=== PATIENT | male | born 1970 | race Hispanic/Latino ===

== ENCOUNTER 2020-05-18 12:29 | Emergency (ER) | payer OTHER, SELFPAY ==
[2020-05-18 13:48] LABS: Absolute Lymphocytes (CBC) 0.7 K/uL (0.7-4.9); Basophils % 0.8 % (0-1.3); Hematocrit 40.7 % (39.6-49.0); Lymphocytes % 15.5 % (15.3-44.8); MPV 8.8 fL (7.6-11.3); RBC Red Blood Cell Count 4.52 M/uL (4.33-5.43)
[2020-05-18] MEDS ORDERED: NA CHLORIDE 0.9% 500 ML ONE (13:52)
[2020-05-18] MEDS ORDERED: AMLODIPINE 10 MG TAB ONE (13:52)
[2020-05-18] MEDS ORDERED: CEFTRIAXONE/SWI 1gm 1 GM/10 ML SYR ONE (13:52)
--- NOTE | 2020-05-18 14:05 | RAD REPORT ---
EXAM DESCRIPTION: Carolyn Single View05/18/2020 1:26 pm CLINICAL HISTORY: cough COMPARISON: none FINDINGS: Lungs are hyperaerated. The lungs appear clear of acute infiltrate. The heart is mildly enlarged IMPRESSION: No acute abnormalities displayed
[2020-05-18 14:09] LABS: ALT/SGPT 24 U/L (12-78); AST/SGOT 20 U/L (15-37); Albumin 4.1 g/dL (3.4-5.0); Alkaline Phosphatase 76 U/L (45-117); BUN Blood Urea Nitrogen 15 mg/dL (7-18); Bicarbonate 28 mmol/L (21-32); Bilirubin Direct 0.1 mg/dL (0-0.2); Bilirubin Total 0.4 mg/dL (0.2-1.0); Glucose Level 100 mg/dL (74-106); Magnesium 2.5 mg/dL (1.8-2.4); Potassium 3.2 mmol/L (3.5-5.1); Protein, Total 8.4 g/dL (6.4-8.2); Sodium Level 140 mmol/L (136-145); Troponin (Emerg Dept Use Only) < 0.02 ng/mL (0.0-0.045)
--- NOTE | 2020-05-18 14:40 | ER ---
Nurse's Notes [facility] Name: Gregg Rivas Age: 49 yrs Sex: Male : 1970 Arrival Date: 05/18/2020 Time: 12:32 Bed 6 Private MD: Diagnosis: Fever, unspecified;Acute upper respiratory infection, unspecified;Essential (primary) hypertension;Hypokalemia Presentation: 05/18 12:34 Chief complaint: Patient states: "I am having been having a small cough and and having jd3 fevers. I don't know if I have COVID.". Coronavirus screen: cough unrelated to allergies, fever, muscle pain, Client presents with at least one sign or symptom that may indicate coronavirus-19. Standard/surgical mask placed on the client. Provider contacted for isolation considerations. Ebola Screen: Patient negative for fever greater than or equal to 101.5 degrees Fahrenheit, and additional compatible Ebola Virus Disease symptoms. Initial Sepsis Screen: Does the patient meet any 2 criteria? No. Patient's initial sepsis screen is negative. Does the patient have a suspected source of infection? No. Patient's initial sepsis screen is negative. Risk Assessment: Do you want to hurt yourself or someone else? Patient reports no desire to harm self or others. Onset of symptoms was May 18, 2020. 12:34 Method Of Arrival: Ambulatory j 12:34 Acuity: NORMA 2 jd3 Triage Assessment: 13:00 General: Appears in no apparent distress. uncomfortable, ill, Behavior is cooperative, bp appropriate for age, anxious. Pain: Complains of pain in SORE THROAT. EENT: No deficits noted. Neuro: No deficits noted. Cardiovascular: No deficits noted. Respiratory: No deficits noted. GI: No signs and/or symptoms were reported involving the gastrointestinal system. : No signs and/or symptoms were reported regarding the genitourinary system. Derm: No deficits noted. Musculoskeletal: No deficits noted. Historical: - Allergies: 12:36 No Known Allergies; jd3 - Home Meds: 12:36 None [Active]; jd3 - PMHx: 12:36 None; jd3 - PSHx: 12:36 None; jd3 - Immunization history:: Adult Immunizations up to date. - Social history:: Smoking status: Patient denies any tobacco usage or history of. Screenin:19 Abuse screen: Denies threats or abuse. Denies injuries from another. Nutritional bp screening: No deficits noted. Tuberculosis screening: No symptoms or risk factors identified. Fall Risk None identified. Assessment: 13:19 General: SEE TRIAGE NOTE. bp 14:41 Reassessment: PT STATES NO S/S BUT REMAINS HYPERTENSIVE. D/C ON HOLD FOR FURTHER BP bp MANAGEMENT. 15:00 Reassessment: Patient is alert, oriented x 3, equal unlabored respirations, skin aa5 warm/dry/pink. Pt sitting up in bed, appears comfortable. Pt states no complaints at this time. . 16:32 Reassessment: PT D/C HOME AMBULATORY, DX WITH HTN AND URI. bp Vital Signs: 12:36 BP 204 / 129; Pulse 81; Resp 18 S; Temp 99.3(O); Pulse Ox 100% on R/A; Weight 86.18 kg jd3 (R); Height 5 ft. 6 in. (167.64 cm) (R); Pain 2/10; 13:30 BP 205 / 128; Pulse 86; Resp 17; Pulse Ox 98% ; bp 14:30 BP 233 / 138; Pulse 80; Resp 17; Pulse Ox 99% ; bp 15:00 BP 210 / 130 (man/); aa5 16:00 BP 182 / 118; Pulse 83; Resp 16; Pulse Ox 99% ; bp 12:36 Body Mass Index 30.67 (86.18 kg, 167.64 cm) jd3 15:00 Dr. Ellis notified. aa5 ED Course: 12:32 Patient arrived in ED. as 12:35 Triage completed. jd3 12:37 Arm band placed on. jd3 12:49 Melvin Marquez, ROCKY is Primary Nurse. bp 12:51 Sacha Ellis MD is Attending Physician. evelia 13:19 Patient has correct armband on for positive identification. Bed in low position. Call bp light in reach. Side rails up X2. 13:20 EKG done, by ED staff, reviewed by Sacha Ellis MD. jb1 13:27 XRAY Chest (1 view) In Process Unspecified. EDMS 13:30 Inserted saline lock: 20 gauge in right antecubital area, using aseptic technique. bp Blood collected. 14:38 Dwayne Nash MD is Referral Physician. evelia 16:32 No provider procedures requiring assistance completed. IV discontinued, intact, bp bleeding controlled, No redness/swelling at site. Pressure dressing applied. Administered Medications: 13:50 Drug: Rocephin 1 grams Route: IV; Rate: per protocol; Site: right antecubital; rb1 13:50 Drug: Norvasc 10 mg Route: PO; rb1 14:52 Follow up: Response: No adverse reaction bp 13:51 Drug: NS 0.9% 500 ml Route: IV; Rate: bolus; Site: right antecubital; rb1 14:51 Drug: Potassium Effervescent Tablet 50 mEq Route: PO; bp 14:52 Follow up: Response: No adverse reaction bp 14:51 Drug: Tylenol 650 mg Route: PO; bp 14:53 Follow up: Response: Pain is decreased bp 14:51 Drug: Lisinopril 10 mg Route: PO; bp 14:53 Follow up: Response: No adverse reaction bp 14:52 Drug: Aspirin 81 mg Route: PO; bp 14:52 Follow up: Response: No adverse reaction bp 14:52 Drug: cloNIDine 0.1 mg Route: PO; bp 14:52 Follow up: Response: No adverse reaction bp Outcome: 14:39 Discharge ordered by . [facility] 16:32 Discharged to home ambulatory. bp 16:32 Condition: stable 16:32 Discharge instructions given to patient, Instructed on discharge instructions, follow up and referral plans. medication usage, Demonstrated understanding of instructions, follow-up care, medications, Prescriptions given X 3. 16:33 Patient left the ED. bp Signatures: Dispatcher [employer] EDMS Jacob Birmingham jb1 Sacha Ellis MD MD cha Martinez, Amelia as Calderon, Audri, RN RN aa5 Fabiola Rangel, RN RN rb1 Nav Weinstein RN RN jd3 Melvin Marquez RN RN bp Corrections: (The following items were deleted from the chart) 12:37 12:34 Acuity: NORMA 3 jd3 jd3
--- NOTE | 2020-05-18 14:40 | EDPHYS ---
Physician Documentation [facility] Name: Gregg Rivas Age: 49 yrs Sex: Male : 1970 Arrival Date: 05/18/2020 Time: 12:32 Bed 6 Private MD: ED Physician Sacha Ellis HPI: 05/18 13:05 This 49 yrs old Male presents to ER via Ambulatory with complaints of Fever. evelia 13:05 The patient reports fever, that was measured at 101 degrees Fahrenheit. Onset: The evelia symptoms/episode began/occurred 1 day(s) ago. Modifying factors: there are no obvious modifying factors. Associated signs and symptoms: Pertinent positives: chills, cough. Severity of symptoms: At their worst the symptoms were mild in the emergency department the symptoms are unchanged. The patient has experienced similar episodes in the past, a few times. Historical: - Allergies: 12:36 No Known Allergies; jd3 - Home Meds: 12:36 None [Active]; jd3 - PMHx: 12:36 None; jd3 - PSHx: 12:36 None; jd3 - Immunization history:: Adult Immunizations up to date. - Social history:: Smoking status: Patient denies any tobacco usage or history of. ROS: 13:06 Constitutional: Negative for fever, chills, and weight loss, Eyes: Negative for injury, evelia pain, redness, and discharge, ENT: Negative for injury, pain, and discharge, Neck: Negative for injury, pain, and swelling, Cardiovascular: Negative for chest pain, palpitations, and edema, Abdomen/GI: Negative for abdominal pain, nausea, vomiting, diarrhea, and constipation, Back: Negative for injury and pain, : Negative for injury, bleeding, discharge, and swelling, MS/Extremity: Negative for injury and deformity, Skin: Negative for injury, rash, and discoloration, Neuro: Negative for headache, weakness, numbness, tingling, and seizure, Psych: Negative for depression, anxiety, suicide ideation, homicidal ideation, and hallucinations, Allergy/Immunology: Negative for hives, rash, and allergies, Endocrine: Negative for neck swelling, polydipsia, polyuria, polyphagia, and marked weight changes, Hematologic/Lymphatic: Negative for swollen nodes, abnormal bleeding, and unusual bruising. 13:06 Respiratory: Positive for cough. Exam: 13:06 Constitutional: This is a well developed, well nourished patient who is awake, alert, evelia and in no acute distress. Head/Face: Normocephalic, atraumatic. Eyes: Pupils equal round and reactive to light, extra-ocular motions intact. Lids and lashes normal. Conjunctiva and sclera are non-icteric and not injected. Cornea within normal limits. Periorbital areas with no swelling, redness, or edema. ENT: Nares patent. No nasal discharge, no septal abnormalities noted. Tympanic membranes are normal and external auditory canals are clear. Oropharynx with no redness, swelling, or masses, exudates, or evidence of obstruction, uvula midline. Mucous membranes moist. Neck: Trachea midline, no thyromegaly or masses palpated, and no cervical lymphadenopathy. Supple, full range of motion without nuchal rigidity, or vertebral point tenderness. No Meningismus. Chest/axilla: Normal chest wall appearance and motion. Nontender with no deformity. No lesions are appreciated. Cardiovascular: Regular rate and rhythm with a normal S1 and S2. No gallops, murmurs, or rubs. Normal PMI, no JVD. No pulse deficits. Respiratory: Lungs have equal breath sounds bilaterally, clear to auscultation and percussion. No rales, rhonchi or wheezes noted. No increased work of breathing, no retractions or nasal flaring. Abdomen/GI: Soft, non-tender, with normal bowel sounds. No distension or tympany. No guarding or rebound. No evidence of tenderness throughout. Back: No spinal tenderness. No costovertebral tenderness. Full range of motion. Skin: Warm, dry with normal turgor. Normal color with no rashes, no lesions, and no evidence of cellulitis. MS/ Extremity: Pulses equal, no cyanosis. Neurovascular intact. Full, normal range of motion. Neuro: Awake and alert, GCS 15, oriented to person, place, time, and situation. Cranial nerves II-XII grossly intact. Motor strength 5/5 in all extremities. Sensory grossly intact. Cerebellar exam normal. Normal gait. Psych: Awake, alert, with orientation to person, place and time. Behavior, mood, and affect are within normal limits. 13:06 Musculoskeletal/extremity: Extremities: all appear grossly normal, with no appreciated pain with palpation, ROM: full active range of motion, full passive range of motion, Pulses: noted to be 4+ in the bilateral radial, brachial, femoral, popliteal, posterior tibial and and dorsalis pedis arteries., Sensation intact. Compartment Syndrome exam of affected extremity: is normal. DVT Exam: No signs of deep vein thrombosis. no pain, no swelling, no tenderness, negative Homans' sign noted on exam, no appreciated bluish discoloration, no erythema, no increased warmth. 13:22 ECG was reviewed by the Attending Physician. [facility] Vital Signs: 12:36 BP 204 / 129; Pulse 81; Resp 18 S; Temp 99.3(O); Pulse Ox 100% on R/A; Weight 86.18 kg jd3 (R); Height 5 ft. 6 in. (167.64 cm) (R); Pain 2/10; 13:30 BP 205 / 128; Pulse 86; Resp 17; Pulse Ox 98% ; bp 14:30 BP 233 / 138; Pulse 80; Resp 17; Pulse Ox 99% ; bp 15:00 BP 210 / 130 (man/); aa5 16:00 BP 182 / 118; Pulse 83; Resp 16; Pulse Ox 99% ; bp 12:36 Body Mass Index 30.67 (86.18 kg, 167.64 cm) jd3 15:00 Dr. Ellis notified. [facility] MDM: 12:[address] [facility] 13:07 Data reviewed: vital signs, nurses notes, lab test result(s), EKG, radiologic studies, [facility] plain films. 13:08 Differential diagnosis: viral Infection, bacterial infection, URI, bronchitis, evelia pneumonia UTI. Differential Diagnosis: Bronchitis Influenza Upper Respiratory Infection Pneumonia. Data interpreted: professor of literature: rate is 81 beats/min, rhythm is regular, Pulse oximetry: on room air is 100 %. Test interpretation: by ED physician or midlevel provider: ECG, plain radiologic studies. Counseling: I had a detailed discussion with the patient and/or guardian regarding: the historical points, exam findings, and any diagnostic results supporting the discharge/admit diagnosis, the presence of at least one elevated blood pressure reading (>120/80) during this emergency department visit, lab results, radiology results, the need for outpatient follow up, for definitive care, a family practitioner. 14:36 ED course: fever , pt is non toxic, will cove with Norvasc and z pack, pt will follow evelia up and return to [facility] er if symptoms. 05/18 13:04 Order name: Basic Metabolic Panel; Complete Time: 14:33 [facility] 05/18 13:04 Order name: CBC with Diff; Complete Time: 14:33 [facility] 05/18 13:04 Order name: LFT's; Complete Time: 14:33 [facility] 05/18 13:04 Order name: Magnesium; Complete Time: 14:33 [facility] 05/18 13:04 Order name: Troponin (emerg Dept Use Only); Complete Time: 14:33 [facility] 05/18 13:04 Order name: Blood Culture Adult (2) [facility] 05/18 13:04 Order name: XRAY Chest (1 view); Complete Time: 14:33 [facility] 05/18 14:15 Order name: COVID-19 bp 05/18 13:04 Order name: EKG; Complete Time: 13:04 [facility] 05/18 13:04 Order name: Cardiac monitoring; Complete Time: 13:20 [facility] 05/18 13:04 Order name: EKG - Nurse/Tech; Complete Time: 13:20 [facility] 05/18 13:04 Order name: IV Saline Lock; Complete Time: 13:34 [facility] 05/18 13:04 Order name: Labs collected and sent; Complete Time: 13:34 [facility] 05/18 13:04 Order name: O2 Per Protocol; Complete Time: 13:20 [facility] 05/18 13:04 Order name: O2 Sat Monitoring; Complete Time: 13:20 [facility] 05/18 14:36 Order name: Vital Signs; Complete Time: 14:42 evelia EC: Rate is 76 beats/min. Rhythm is regular. QRS [place] is Normal. TN interval is normal. QRS evelia interval is normal. QT interval is normal. No Q waves. T waves are Normal. No ST changes noted. Clinical impression: Normal ECG and NSR w/ Non-specific ST/T Changes. Interpreted by me. Reviewed by me. Administered Medications: 13:50 Drug: Rocephin 1 grams Route: IV; Rate: per protocol; Site: right antecubital; rb1 13:50 Drug: Norvasc 10 mg Route: PO; rb1 14:52 Follow up: Response: No adverse reaction bp 13:51 Drug: NS 0.9% 500 ml Route: IV; Rate: bolus; Site: right antecubital; rb1 14:51 Drug: Potassium Effervescent Tablet 50 mEq Route: PO; bp 14:52 Follow up: Response: No adverse reaction bp 14:51 Drug: Tylenol 650 mg Route: PO; bp 14:53 Follow up: Response: Pain is decreased bp 14:51 Drug: Lisinopril 10 mg Route: PO; bp 14:53 Follow up: Response: No adverse reaction bp 14:52 Drug: Aspirin 81 mg Route: PO; bp 14:52 Follow up: Response: No adverse reaction bp 14:52 Drug: cloNIDine 0.1 mg Route: PO; bp 14:52 Follow up: Response: No adverse reaction bp Disposition: 05/18/20 14:39 Discharged to Home. Impression: Fever, unspecified, Acute upper respiratory infection, unspecified, Essential (primary) hypertension, Hypokalemia. - Condition is Stable. - Discharge Instructions: Potassium Content of Foods, Hypertension, Upper Respiratory Infection, Adult, Hypertension, [id number], How to Take Your Blood Pressure, Sqbh-[id number]-Juab, Aspirin and Your Heart, Cough, Adult, Hypokalemia, Managing Your Hypertension. - Prescriptions for Norvasc 10 mg Oral Tablet - take 1 tablet by ORAL route once daily; 30 tablet. Zithromax Z- Earl 250 mg Oral Tablet - take 1 tablet by ORAL route as directed for 5 days Day 1 - take two (2) tablets one time. Day 2, 3, 4 , 5 take one (1) tablet once daily.; 6 tablet. Lisinopril 10 mg Oral Tablet - take 1 tablet by ORAL route once daily; 20 tablet. - Medication Reconciliation Form, Thank You Letter, Antibiotic Education, Prescription Opioid Use form. - Follow up: Private Physician; When: 2 - 3 days; Reason: Recheck today's complaints, Continuance of care, Re-evaluation by your physician. Follow up: Dwayne Nash MD; When: 2 - 3 days; Reason: Recheck today's complaints, Re-evaluation by your physician. - Problem is new. - Symptoms have improved. Addendum: 05/22/2020 11:34 Addendum: Notified of positive COVID-19 test results, feels better, requests proof for r n work. . Signatures: Dispatcher [employer] Sacha Pacheco MD MD cha Nieto, Roman, MD MD rn Barber, Fabiola, RN RN rb1 Nav Weinstein RN RN jd3 Melvin Marquez RN RN bp Corrections: (The following items were deleted from the chart) 05/18 14:56 14:39 05/18/2020 14:39 Discharged to Home. Impression: Fever, unspecified; Acute upper evelia respiratory infection, unspecified; Essential (primary) hypertension. Condition is Stable. Forms are Medication Reconciliation Form, Thank You Letter, Antibiotic Education, Prescription Opioid Use. Follow up: Private Physician; When: 2 - 3 days; Reason: Recheck today's complaints, Continuance of care, Re-evaluation by your physician. Follow up: Dwayne Nash; When: 2 - 3 days; Reason: Recheck today's complaints, Re-evaluation by your physician. Problem is new. Symptoms have improved. evelia 16:33 14:56 05/18/2020 14:39 Discharged to Home. Impression: Fever, unspecified; Acute upper bp respiratory infection, unspecified; Essential (primary) hypertension; Hypokalemia. Condition is Stable. Discharge Instructions: Hypertension, Upper Respiratory Infection, Adult, Hypertension, [id number]-[id number]-[id number], How to Take Your Blood Pressure, [id number]-[id number], Aspirin and Your Heart, Cough, Adult, Managing Your Hypertension. Prescriptions for Norvasc 10 mg Oral Tablet - take 1 tablet by ORAL route once daily; 30 tablet, Zithromax Z-Earl 250 mg Oral Tablet - take 1 tablet by ORAL route as directed for 5 days Day 1 - take two (2) tablets one time. Day 2, 3, 4 , 5 take one (1) tablet once daily.; 6 tablet, Lisinopril 10 mg Oral Tablet - take 1 tablet by ORAL route once daily; 20 tablet. and Forms are Medication Reconciliation Form, Thank You Letter, Antibiotic Education, Prescription Opioid Use. Follow up: Private Physician; When: 2 - 3 days; Reason: Recheck today's complaints, Continuance of care, Re-evaluation by your physician. Follow up: Dwayne Nash; When: 2 - 3 days; Reason: Recheck today's complaints, Re-evaluation by your physician. Problem is new. Symptoms have improved. evelia
[2020-05-18] MEDS ORDERED: cloNIDine HCL 0.1 MG TAB ONE (14:55)
[2020-05-18] MEDS ORDERED: ACETAMINOPHEN 325 MG TABLET ONE (14:56)
[2020-05-18] MEDS ORDERED: lisinopriL 10 MG TAB ONE (14:56)
[2020-05-18] MEDS ORDERED: ASPIRIN EC 81 MG TAB PO ONE (14:56)
[2020-05-18] MEDS ORDERED: POTASSIUM 25 MEQ EFFERV TAB ONE (14:56)
== END 2020-05-18 16:33 | disposition home or self-care (01) ==
LOC: ER 12:29
DX: U07.1 COVID-19 (principal); J98.8 Other specified respiratory disorders; I10 Essential (primary) hypertension; E87.6 Hypokalemia
CPT/HCPCS: 36415; 71045; 80048; 80076; 83735; 84484; 85025; 87040; 93005; 96374; 99284; J0696; J7040; U0002

== ENCOUNTER 2023-07-17 08:42 | Emergency (ER) | payer SELFPAY ==
--- OUTSIDE RECORDS SUMMARY | 2023-07-17 08:45 | XMS REPORT | Continuity of Care Document ---
:1970 Author Organization [facility] t Address [address] [place] [id number] Care Team Providers Name Role Phone Unavailable Unavailable Unavailable Problems This patient has no known problems. Allergies, Adverse Reactions, Alerts This patient has no known allergies or adverse reactions. Medications This patient has no known medications. Procedures This patient has no known procedures. Encounters Start End Encounter Admission Attending Care Care Encounter Source Date/Time Date/Time Type Type Clinicians Facility Department ID 2023-07-16 2023-07-[address] [facility] SFA [id number] Liam 08:51:39 08:51:39 [address] [facility] Results This patient has no known results.
[2023-07-17 09:03] LABS: Absolute Lymphocytes (CBC) 1.7 K/uL (0.7-4.9); Hematocrit 40.3 % (39.6-49.0); Lymphocytes % 17.8 % (15.3-44.8); MCV 89.8 fL (80-100); Platelets 224 thou/uL (152-406); RBC Red Blood Cell Count 4.48 M/uL (4.33-5.43)
[2023-07-17] MEDS ORDERED: ONDANSETRON 4 MG/2 ML VIAL ONE ×2 (09:04→10:44)
[2023-07-17] MEDS ORDERED: MORPHINE 4 MG/ML SYR ONE (09:04)
[2023-07-17 09:24] LABS: Albumin 3.6 g/dL (3.4-5.0); Bilirubin Direct 0.2 mg/dL (0-0.2); Bilirubin Indirect, Calculated 0.7 mg/dL (0.2-0.8); Bilirubin Total 0.9 mg/dL (0.2-1.0); Magnesium 2.3 mg/dL (1.6-2.4); Potassium 2.9 mEq/L (3.5-5.1); Protein, Total 7.4 g/dL (6.4-8.2); Troponin High Sensitivity 10.8 pg/mL (<58.9)
--- NOTE | 2023-07-17 09:52 | RAD REPORT ---
[facility] CLINICAL HISTORY: CHEST PAIN COMPARISON: Chest Single View dated 05/18/2020; ABDOMEN ACUTE SERIES dated 11/20/2015; CHEST PA AND LA T 2 VIEW dated 11/05/2011 TECHNIQUE: Portable AP view of the chest. FINDINGS: The lungs are clear. No pneumothorax or effusion. Heart is mildly enlarged. Mediastinal c ontours are unremarkable. IMPRESSION: No acute cardiopulmonary process. Stable mild cardiomegaly.
[2023-07-17] MEDS ORDERED: HYDROMORPHONE HCL 1 MG/ML INJ ONE (10:05)
[2023-07-17] MEDS ORDERED: DIPHENHYDRAMINE 50 MG/ML VIAL ONE (10:38)
[2023-07-17] MEDS ORDERED: FAMOTIDINE 20 MG/2 ML VIAL IV ONE (10:38)
[2023-07-17] MEDS ORDERED: METHYLPREDNISOLONE 125 MG INJ ONE (10:38)
--- NOTE | 2023-07-17 10:39 | ER ---
Nurse's Notes [facility] Name: Gregg Rivas Age: 53 yrs Sex: Male : 1970 Arrival Date: 07/17/2023 Time: 08:42 Bed 8 Private MD: Diagnosis: Thoracic aortic aneurysm, without rupture Presentation: 07/17 08:45 Chief complaint: EMS states: toned out to patient home for CP radiating to back. ld1 Coronavirus screen: At this time, the client does not indicate any symptoms associated with coronavirus-19. Ebola Screen: No symptoms or risks identified at this time. Initial Sepsis Screen: Does the patient meet any 2 criteria? No. Patient's initial sepsis screen is negative. Does the patient have a suspected source of infection? No. Patient's initial sepsis screen is negative. Risk Assessment: Do you want to hurt yourself or someone else? Patient reports no desire to harm self or others. Onset of symptoms was July 17, 2023. 08:45 Method Of Arrival: EMS: [facility] ld1 08:45 Acuity: NORMA 3 ld1 10:25 Acuity: NORMA 2 hb Triage Assessment: 08:46 General: Appears in no apparent distress. uncomfortable, Behavior is calm, cooperative. ld1 Pain: Complains of pain in chest Pain radiates to back Pain currently is 9 out of 10 on a pain scale. Quality of pain is described as pressure, throbbing. EENT: No signs and/or symptoms were reported regarding the EENT system. Neuro: Level of Consciousness is awake, alert, obeys commands, Oriented to person, place, time, situation. Cardiovascular: Capillary refill < 3 seconds Patient's skin is warm and dry. Rhythm is sinus bradycardia. Respiratory: Airway is patent Respiratory effort is even, unlabored. GI: Abdomen is round non-distended. : No signs and/or symptoms were reported regarding the genitourinary system. Derm: Skin temperature is cool. Musculoskeletal: No signs and/or symptoms reported regarding the musculoskeletal system. Historical: - Allergies: 08:46 No Known Allergies; ld1 - PMHx: 08:46 BPH; Hypertensive disorder; ld1 - PSHx: 08:46 None; ld1 - Immunization history:: Adult Immunizations up to date. - Social history:: Smoking status: Patient denies any tobacco usage or history of. Patient/guardian denies using alcohol. Screenin:48 [facility] ED Fall Risk Assessment (Adult) History of falling in the last 3 months, ld1 including since admission No falls in past 3 months (0 pts). Abuse screen: Denies threats or abuse. Denies injuries from another. Nutritional screening: No deficits noted. Tuberculosis screening: No symptoms or risk factors identified. Assessment: 08:48 Reassessment: See triage assessment. ld1 09:15 Reassessment: Patient appears in no apparent distress at this time. Patient states ld1 symptoms have not improved. 10:32 Reassessment: No changes from previously documented assessment. Patient and/or family ld1 updated on plan of care and expected duration. Pain level reassessed. Pt back from CT - reports Nausea, actively vomiting. ERP at bedside. Medications administered, see [facility] for orders. Pt still c/o chest pain. 11:10 Reassessment: Pt back from CT. ERP at bedside. ld1 11:40 Reassessment: Pt BP not lowering to goal <120 despite several doses of metoprolol and hb Jez, aware, Cardene drip started to 20g RAC. Transfer to higher level of care pending. 11:56 Reassessment: Report called to Bassam HIDALGO at [facility]. hb 12:05 Reassessment: [facility] at bedside. hb Vital Signs: 08:45 BP 180 / 119; Pulse 59; Resp 18; Pulse Ox 100% on R/A; Pain 9/10; ld1 08:48 Weight 81.65 kg; Height 5 ft. 8 in. ; ld1 08:56 BP 169 / 110; ld1 09:16 BP 182 / 93; Pulse 49; Resp 15; Temp 97.9; Pulse Ox 99% on R/A; hb 10:23 BP 188 / 94; Pulse 71; Resp 18; Pulse Ox 99% on R/A; Pain 8/10; ld1 10:37 BP 201 / 103; ld1 10:48 BP 183 / 99; Pulse 82; ld1 10:56 BP 172 / 99; Pulse 84; ld1 11:00 BP 157 / 81; Pulse 91; ld1 11:06 BP 169 / 77; ld1 11:19 BP 177 / 88; Pulse 77; Resp 15; Pulse Ox 99% ; hb 11:26 BP 162 / 81; Pulse 72; hb 11:30 BP 165 / 87; Pulse 74; Resp 18; Pulse Ox 99% on R/A; ld1 11:35 BP 155 / 93; Pulse 69; Resp 30; Pulse Ox 99% on R/A; ld1 11:47 BP 144 / 79; Pulse 75; Resp 18; Pulse Ox 98% on R/A; ld1 11:55 BP 135 / 72; Pulse 74; Resp 21; Pulse Ox 99% on R/A; hb 11:57 BP 135 / 72; Pulse 74; Resp 18; Pulse Ox 97% on R/A; ld1 12:08 BP 127 / 74; Pulse 72; Resp 19; Pulse Ox 96% ; hb 08:48 Body Mass Index 27.37 (81.65 kg, 172.72 cm) ld1 08:45 Pain Scale: Adult ld1 10:23 Pain Scale: Adult ld1 ED Course: 08:44 Patient arrived in ED. ll1 08:45 Yari Spencer RN is Primary Nurse. ld1 08:46 Juan Amato MD is Attending Physician. kdr 08:46 Triage completed. ld1 08:46 Arm band placed on right wrist. ld1 08:48 Patient has correct armband on for positive identification. Placed in gown. Bed in low ld1 position. Call light in reach. Side rails up X2. electrician's helper on. Pulse ox on. NIBP on. Door closed. Noise minimized. Warm blanket given. 08:48 No provider procedures requiring assistance completed. Inserted saline lock: 20 gauge ld1 in right antecubital area, using aseptic technique. Blood collected. Patient maintains SpO2 saturation greater than 95% on room air. 09:01 XRAY Chest (1 view) In Process Unspecified. EDMS 10:29 Thorax Wo Con In Process Unspecified. EDMS 10:32 contacted [facility] for transfer. ll1 10:34 Inserted saline lock: 20 gauge in left antecubital area, using aseptic technique. ld1 11:05 Angio Aorta For Dissection In Process Unspecified. EDMS 11:10 contacted [facility] for transfer. ll1 11:48 Approval for [facility] Dr. Erick Sawant, accepted by Josefa Mcintyre, transfer ll1 coordinator. Going to room 7A, bed 6, Rodas A. 11:49 Jayla Aggarwal notified no longer need bed. ll1 11:50 [facility] contacted. ETA 26 min. ll1 12:17 Patient transferred, IV remains in place. hb Administered Medications: 08:54 Drug: morphine IVP or IV 4 mg IVP once over 4 mins Route: IVP; Infused Over: 4 mins; ld1 Site: right antecubital; 08:55 Drug: Ondansetron IVP 4 mg IVP once; over 2 minutes Route: IVP; Site: right antecubital;ld1 09:54 Drug: HYDROmorphone IVP 0.5 mg IVP once; Verbal order per Dr. Amato Route: IVP; Site: ld1 right antecubital; 10:28 Drug: diphenhydrAMINE IVP 50 mg IVP once Route: IVP; Site: right antecubital; hb 10:28 Drug: Famotidine IVP 20 mg IVP once; dilute with 10 mL 0.9% NaCl; give over 2 minutes hb Route: IVP; Site: right antecubital; 10:29 Drug: MethylPrednisoLONE IVP 125 mg IVP once Route: IVP; Site: right antecubital; hb 10:33 Drug: hydrALAZINE IVP 5 mg IVP once Route: IVP; Site: right antecubital; hb 10:34 Drug: HYDROmorphone IVP 0.5 mg IVP once; Verbal order per Dr. Amato Route: IVP; Site: ld1 left antecubital; 10:36 Drug: hydrALAZINE IVP 5 mg IVP once Route: IVP; Site: right antecubital; ld1 10:49 Drug: hydrALAZINE IVP 5 mg IVP once Route: IVP; Site: left antecubital; hb 10:56 Drug: hydrALAZINE IVP 10 mg IVP once Route: IVP; Site: left antecubital; hb 11:06 Drug: hydrALAZINE IVP 10 mg IVP once Route: IVP; Site: left antecubital; hb 11:12 Drug: Metoprolol IVP 5 mg IVP once; Hold for SBP <100 or HR <60. Route: IVP; Site: hb right antecubital; 11:18 Drug: Metoprolol IVP 5 mg IVP once; Hold for SBP <100 or HR <60. Route: IVP; Site: left hb antecubital; 11:24 Drug: Labetalol IV 10 mg IV at calculated rate once Route: IV; Rate: calculated rate; hb Site: left antecubital; 11:37 CANCELLED (not available ): nitroprusside0.5 mcg/kg/min IV at calculated rate See hb Administration Instructions; Shield from light (standard concentration 50 mg/250 mL D5W); Recommended max rate 10 mcg/kg/min; Titrate 0.1 mcg/kg/min as often as every 5 minutes to achieve goal (see titration policy); Goal parameter SBP less than 160 mmHg. 11:37 CANCELLED (Duplicate Order): nicardipine5 mg/hr IV at calculated rate See hb Administration Instructions; (Standard concentration 25 mg / 250 mL NS); Recommended max rate 15 mg/hr; Titrate 2.5 mg/hr as often as every 15 minutes to achieve goal (see titration policy); Goal parameter SBP less than 160 mmHg 11:40 Drug: niCARdipine IV 5 mg/hr IV at calculated rate See Administration Instructions; hb (Standard concentration 25 mg / 250 mL NS); Recommended max rate 15 mg/hr; Titrate 2.5 mg/hr as often as every 15 minutes to achieve goal (see titration policy); Goal parameter SBP less than 10 mmHg Route: IV; Rate: calculated rate; Site: right antecubital; 11:56 Follow up: Rate change 7.5 mg/hr; 135/72 hb 11:47 Drug: Promethazine IVP 12.5 mg IVP once Route: IVP; Site: left antecubital; ld1 Medication: 08:48 VIS not applicable for this client. ld1 Intake: Outcome: 10:38 ER care complete, transfer ordered by . kdr 12:16 [place] helicopter [place] [facility] [facility] [place] 12:16 critical 12:16 Instructed on the need for transfer, Demonstrated understanding of instructions, 12:27 Patient left the ED. hb Signatures: Dispatcher [employer] EDMS Juan Amato MD MD kdr Baxter, Heather, RN RN Xavier Salgado RN RN 1 Yari Spencer RN RN ld1 Corrections: (The following items were deleted from the chart) 12:04 09:16 BP 182 / 93; Pulse 49bpm; Resp 15bpm; Pulse Ox 99% RA; hb hb 12:13 12:11 contacted [facility] for transfer [email or web address] 12:17 11:40 Reassessment: Pt BP not lowering to goal <120 despite metoprolol and Lopressor, hb MD chicas, Cardene drip started to 20g RAC. Transfer to higher level of care pending. hb
--- NOTE | 2023-07-17 10:39 | EDPHYS ---
Physician Documentation [facility] Name: Gregg Rivas Age: 53 yrs Sex: Male : 1970 Arrival Date: 07/17/2023 Time: 08:42 Bed 8 Private MD: ED Physician Juan Amato HPI: 07/17 09:27 This 53 yrs old Male presents to ER via EMS with complaints of Chest Pain. kdr 09:27 The patient or guardian reports chest pain that is located primarily in the substernal kdr area, Patient primarily has pain in his back but also somewhat in the front.. Onset: yesterday, at 14:00. The pain radiates to back. Associated signs and symptoms: Pertinent positives: diaphoresis, shortness of breath. The chest pain is described as aching, a pressure. Duration: The patient or guardian reports a single episode, that is still ongoing, and worsening. Severity of pain: At its worst the pain was moderate severe incapacitating just prior to arrival, in the emergency department the pain is unchanged. The patient has not experienced similar symptoms in the past. Historical: - Allergies: 08:46 No Known Allergies; ld1 - PMHx: 08:46 BPH; Hypertensive disorder; ld1 - PSHx: 08:46 None; ld1 - Immunization history:: Adult Immunizations up to date. - Social history:: Smoking status: Patient denies any tobacco usage or history of. Patient/guardian denies using alcohol. ROS: 09:27 Constitutional: Negative for fever, chills, and weight loss, Eyes: Negative for injury, kdr pain, redness, and discharge, ENT: Negative for injury, pain, and discharge, Neck: Negative for injury, pain, and swelling, Respiratory: Negative for shortness of breath, cough, wheezing, and pleuritic chest pain, Abdomen/GI: Negative for abdominal pain, nausea, vomiting, diarrhea, and constipation, Back: Negative for injury and pain, : Negative for injury, bleeding, discharge, and swelling, MS/Extremity: Negative for injury and deformity, Skin: Negative for injury, rash, and discoloration, Neuro: Negative for headache, weakness, numbness, tingling, and seizure activity. Psych: Negative for depression, anxiety, suicide ideation, homicidal ideation, and hallucinations, Allergy/Immunology: Negative for hives, rash, and allergies, Endocrine: Negative for neck swelling, polydipsia, polyuria, polyphagia, and marked weight changes, Hematologic/Lymphatic: Negative for swollen nodes, abnormal bleeding, and unusual bruising, : Cardiovascular: Positive for chest pain, Negative for edema, orthopnea, palpitations, paroxysmal nocturnal dyspnea, : Back: Positive for pain at rest, : Skin: Positive for diaphoresis, Exam: : Constitutional: This is a well developed, well nourished patient who is awake, alert, kdr and in no acute distress. Head/Face: Normocephalic, atraumatic. Eyes: Pupils equal round and reactive to light, extra-ocular motions intact. Lids and lashes normal. Conjunctiva and sclera are non-icteric and not injected. Cornea within normal limits. Periorbital areas with no swelling, redness, or edema. Neck: Trachea midline, no thyromegaly or masses palpated, and no cervical lymphadenopathy. Supple, full range of motion without nuchal rigidity, or vertebral point tenderness. No Meningismus. Chest/axilla: Normal chest wall appearance and motion. Nontender with no deformity. No lesions are appreciated. Respiratory: Lungs have equal breath sounds bilaterally, clear to auscultation and percussion. No rales, rhonchi or wheezes noted. No increased work of breathing, no retractions or nasal flaring. Abdomen/GI: Soft, non-tender, with normal bowel sounds. No distension or tympany. No guarding or rebound. No evidence of tenderness throughout. Back: No spinal tenderness. No costovertebral tenderness. Full range of motion. Skin: Warm, dry with normal turgor. Normal color with no rashes, no lesions, and no evidence of cellulitis. MS/ Extremity: Pulses equal, no cyanosis. Neurovascular intact. Full, normal range of motion. Neuro: Awake and alert, GCS 15, oriented to person, place, time, and situation. Cranial nerves II-XII grossly intact. Motor strength 5/5 in all extremities. Sensory grossly intact. Cerebellar exam normal. Normal gait. Psych: Awake, alert, with orientation to person, place and time. Behavior, mood, and affect are within normal limits. : Cardiovascular: Rate: bradycardic, Rhythm: regular, Pulses: no pulse deficits are appreciated, Edema: is not appreciated, Vital Signs: 08:45 BP 180 / 119; Pulse 59; Resp 18; Pulse Ox 100% on R/A; Pain 9/10; ld1 08:48 Weight 81.65 kg; Height 5 ft. 8 in. ; ld1 08:56 BP 169 / 110; ld1 09:16 BP 182 / 93; Pulse 49; Resp 15; Temp 97.9; Pulse Ox 99% on R/A; hb 10:23 BP 188 / 94; Pulse 71; Resp 18; Pulse Ox 99% on R/A; Pain 8/10; ld1 10:37 BP 201 / 103; ld1 10:48 BP 183 / 99; Pulse 82; ld1 10:56 BP 172 / 99; Pulse 84; ld1 11:00 BP 157 / 81; Pulse 91; ld1 11:06 BP 169 / 77; ld1 11:19 BP 177 / 88; Pulse 77; Resp 15; Pulse Ox 99% ; hb 11:26 BP 162 / 81; Pulse 72; hb 11:30 BP 165 / 87; Pulse 74; Resp 18; Pulse Ox 99% on R/A; ld1 11:35 BP 155 / 93; Pulse 69; Resp 30; Pulse Ox 99% on R/A; ld1 11:47 BP 144 / 79; Pulse 75; Resp 18; Pulse Ox 98% on R/A; ld1 11:55 BP 135 / 72; Pulse 74; Resp 21; Pulse Ox 99% on R/A; hb 11:57 BP 135 / 72; Pulse 74; Resp 18; Pulse Ox 97% on R/A; ld1 12:08 BP 127 / 74; Pulse 72; Resp 19; Pulse Ox 96% ; hb 08:48 Body Mass Index 27.37 (81.65 kg, 172.72 cm) ld1 08:45 Pain Scale: Adult ld1 10:23 Pain Scale: Adult ld1 MDM: 10:31 Data reviewed: vital signs, nurses notes. kdr 10:38 Patient medically screened. kdr 10:56 ED course: Spoke with CT Surgeon - will accept in transfer and will Fly patient.. kdr 11:36 ED course: Nicardipine goal >120 SBP communicated to nursing staff. kdr 07/17 08:47 Order name: Basic Metabolic Panel; Complete Time: 09:27 kdr 07/17 08:47 Order name: CBC with Diff; Complete Time: 09:27 kdr 07/17 08:47 Order name: D-Dimer; Complete Time: 09:27 kdr 07/17 08:47 Order name: LFT's; Complete Time: 09:27 kdr 07/17 08:47 Order name: Magnesium; Complete Time: 09:27 kdr 07/17 08:47 Order name: NT PRO-BNP; Complete Time: 09:27 kdr 07/17 08:47 Order name: Troponin HS; Complete Time: 09:27 kdr 07/17 08:47 Order name: XRAY Chest (1 view); Complete Time: 10:08 kdr 07/17 10:13 Order name: Thorax Wo Con; Complete Time: 11:39 EDMS 07/17 10:57 Order name: Angio Aorta For Dissection; Complete Time: 11:39 EDMS 07/17 08:47 Order name: EKG; Complete Time: 08:48 kdr 07/17 08:47 Order name: Cardiac monitoring; Complete Time: 08:49 kdr 07/17 08:47 Order name: EKG - Nurse/Tech; Complete Time: 08:49 kdr 07/17 08:47 Order name: IV Saline Lock; Complete Time: 08:49 kdr 07/17 08:47 Order name: Labs collected and sent; Complete Time: 08:55 kdr 07/17 08:47 Order name: O2 Per Protocol; Complete Time: 08:49 kdr 07/17 08:47 Order name: O2 Sat Monitoring; Complete Time: 08:49 kdr 07/17 10:32 Order name: Misc. Order: Initiate emergent transfer to [facility]: DX Aortic aneurysm; kdr Complete Time: 11:13 Administered Medications: 08:54 Drug: morphine IVP or IV 4 mg IVP once over 4 mins Route: IVP; Infused Over: 4 mins; ld1 Site: right antecubital; 08:55 Drug: Ondansetron IVP 4 mg IVP once; over 2 minutes Route: IVP; Site: right antecubital;ld1 09:54 Drug: HYDROmorphone IVP 0.5 mg IVP once; Verbal order per Dr. Amato Route: IVP; Site: ld1 right antecubital; 10:28 Drug: diphenhydrAMINE IVP 50 mg IVP once Route: IVP; Site: right antecubital; hb 10:28 Drug: Famotidine IVP 20 mg IVP once; dilute with 10 mL 0.9% NaCl; give over 2 minutes hb Route: IVP; Site: right antecubital; 10:29 Drug: MethylPrednisoLONE IVP 125 mg IVP once Route: IVP; Site: right antecubital; hb 10:33 Drug: hydrALAZINE IVP 5 mg IVP once Route: IVP; Site: right antecubital; hb 10:34 Drug: HYDROmorphone IVP 0.5 mg IVP once; Verbal order per Dr. Amato Route: IVP; Site: ld1 left antecubital; 10:36 Drug: hydrALAZINE IVP 5 mg IVP once Route: IVP; Site: right antecubital; ld1 10:49 Drug: hydrALAZINE IVP 5 mg IVP once Route: IVP; Site: left antecubital; hb 10:56 Drug: hydrALAZINE IVP 10 mg IVP once Route: IVP; Site: left antecubital; hb 11:06 Drug: hydrALAZINE IVP 10 mg IVP once Route: IVP; Site: left antecubital; hb 11:12 Drug: Metoprolol IVP 5 mg IVP once; Hold for SBP <100 or HR <60. Route: IVP; Site: right antecubital; 11:18 Drug: Metoprolol IVP 5 mg IVP once; Hold for SBP <100 or HR <60. Route: IVP; Site: left hb antecubital; 11:24 Drug: Labetalol IV 10 mg IV at calculated rate once Route: IV; Rate: calculated rate; hb Site: left antecubital; 11:37 CANCELLED (not available ): nitroprusside0.5 mcg/kg/min IV at calculated rate See hb Administration Instructions; Shield from light (standard concentration 50 mg/250 mL D5W); Recommended max rate 10 mcg/kg/min; Titrate 0.1 mcg/kg/min as often as every 5 minutes to achieve goal (see titration policy); Goal parameter SBP less than 160 mmHg. 11:37 CANCELLED (Duplicate Order): nicardipine5 mg/hr IV at calculated rate See hb Administration Instructions; (Standard concentration 25 mg / 250 mL NS); Recommended max rate 15 mg/hr; Titrate 2.5 mg/hr as often as every 15 minutes to achieve goal (see titration policy); Goal parameter SBP less than 160 mmHg 11:40 Drug: niCARdipine IV 5 mg/hr IV at calculated rate See Administration Instructions; hb (Standard concentration 25 mg / 250 mL NS); Recommended max rate 15 mg/hr; Titrate 2.5 mg/hr as often as every 15 minutes to achieve goal (see titration policy); Goal parameter SBP less than 10 mmHg Route: IV; Rate: calculated rate; Site: right antecubital; 11:56 Follow up: Rate change 7.5 mg/hr; 135/72 hb 11:47 Drug: Promethazine IVP 12.5 mg IVP once Route: IVP; Site: left antecubital; ld1 Disposition Summary: 07/17/23 10:38 Transfer Ordered Notes: Transfer Location: [facility] kdr Reason: Higher level of care kdr Condition: Serious kdr Problem: new kdr Symptoms: have improved kdr Accepting Physician: annabelle(07/17/23 12:27) hb Diagnosis - Thoracic aortic aneurysm, without rupture kdr Forms: - Medication Reconciliation Form kdr - SBAR form kdr Signatures: Dispatcher [employer] EDMS Juan Amato MD MD kdr Alaina Rosales RN RN hb Yari Spencer RN RN ld1 Corrections: (The following items were deleted from the chart) 10:11 09:10 Chest Angio+CT.RAD.BRZ ordered. EDMS EDMS 10:11 10:11 Abdomen ordered. EDMS EDMS 11:37 11:32 Nitroprusside IV 0.5 mcg/kg/min IV at calculated rate See Administration hb Instructions; Shield from light (standard concentration 50 mg/250 mL D5W); Recommended max rate 10 mcg/kg/min; Titrate 0.1 mcg/kg/min as often as every 5 minutes to achieve goal (see titration policy); Goal parameter SBP less than 160 mmHg. ordered. kdr 11:37 11:37 niCARdipine IV 5 mg/hr IV at calculated rate See Administration Instructions; hb (Standard concentration 25 mg / 250 mL NS); Recommended max rate 15 mg/hr; Titrate 2.5 mg/hr as often as every 15 minutes to achieve goal (see titration policy); Goal parameter SBP less than 160 mmHg ordered. hb 12:27 10:38 zxc kdr hb
[2023-07-17] MEDS ORDERED: HYDRALAZINE HCL 20 MG/ML VIAL ONE ×2 (10:44→10:59)
[2023-07-17] MEDS ORDERED: METOPROLOL TARTRATE 5 MG/5 ML INJ IV ONE (11:21)
[2023-07-17] MEDS ORDERED: LABETALOL 20 MG/4ML SYRINGE IV ONE (11:34)
--- NOTE | 2023-07-17 11:35 | RAD REPORT ---
EXAM DESCRIPTION: CT - Angio Aorta For Dissection - 07/17/2023 11:03 am CLINICAL HISTORY: CHEST PAIN COMPARISON: Thorax Wo Con dated 07/17/2023; Chest Single View dated 07/17/2023 TECHNIQUE: Dynamically enhanced thin cut CT images of the chest, abdomen, and pelvis were obtained d uring administration of approximately 150mL Isovue 370 IV contrast. Sagittal and coronal reconstructi ons as well as maximal intensity projection reconstruction were generated and reviewed per an aortic angiography protocol. All CT scans are performed using dose optimization technique as appropriate and may include automated exposure control or mA/KV adjustment according to patient size. FINDINGS: Ascending thoracic aorta is normal in diameter. Tortuosity of the mid arch through distal descending thoracic aorta, with fusiform aneurysmal dilation most notably at the distal arch measurin g 4.3 cm in caliber. Type B aortic dissection, with the dissection flap starting at the highest level of the arch just distal to the left subclavian artery origin. The defect within the flap is seen at the level of the distal arch, axial image 30 and coronal image 57, measuring up to 1.4 cm in greatest diameter. The false lumen is larger than the true lumen throughout most of the distal portion descen ding thoracic aorta, with the discrepancy in diameter most pronounced at the level of the mid descend ing aorta, where false lumen diameter measures up to 2.7 cm, while true lumen diameter measures 9 mil limeter. At the level of the diaphragmatic hiatus, the true lumen diameter also measures 9 millimeter , while the false lumen is nonopacified and measures 2.2 cm in diameter. The superior mesenteric arie ry and celiac axis as well as bilateral renal arteries arise from the true lumen. The dissection flap ends at the level of the right renal artery ostium. Heart is mildly enlarged. There is mild pericardial effusion. Pulmonary arteries are normal as well. No mass or infiltrate in the lung parenchyma. No pleural thickening, pleural effusion or pneumothorax . No abnormal mediastinal or hilar mass or lymphadenopathy seen. No chest wall mass or abnormal axillar y lymphadenopathy. Celiac, SMA and renal arteries show no suspicious findings. Solid abdominal viscera and bowel show no significant findings. No mass or abnormal lymphadenopathy. IMPRESSION: Type B aortic dissection. The false lumen exceeds the true luminal diameter at the mid a nd distal descending thoracic aorta. The dissection flap and septal level of the right renal artery o stium. Fusiform aneurysmal dilation at the level of the distal arch measures 4.3 cm. Major arterial structures in the abdomen arise from the true lumen. Heart is mildly enlarged. Mild pericardial effusion. The findings were communicated to Dr. Amato on 07/17/2023 at 11:06 hours.
--- NOTE | 2023-07-17 11:38 | RAD REPORT ---
EXAM DESCRIPTION: CT - Thorax Wo Con - 07/17/2023 10:27 am CLINICAL HISTORY: CHEST PAIN COMPARISON: Chest Single View dated 07/17/2023; Chest Single View dated 05/18/2020 TECHNIQUE: Axial thin cut images of the chest were obtained without IV contrast. Multiplanar reforma ts were generated and reviewed. All CT scans are performed using dose optimization technique as appropriate and may include automated exposure control or mA/KV adjustment according to patient size. FINDINGS: No mass or infiltrate in the lung parenchyma. No pleural thickening or pleural effusion. N o pneumothorax. No abnormal mediastinal or hilar masses or lymphadenopathy seen. Fusiform aneurysmal dilation at the level of the distal arch measures 4.3 cm. Crescentic hyperdensity along the lateral aspect of the distal arch and descending thoracic aorta, de monstrated on subsequent angiographic CT to represent a type B aneurysm. Heart is mildly enlarged. Mild pericardial effusion. No chest wall mass or abnormal axillary lymphadenopathy. Evaluation of the solid abdominal structures reveals no suspicious findings. IMPRESSION: Fusiform aneurysmal dilation of the distal aortic arch, up to 4.3 cm in caliber. Crescentic hyperdensity along the lateral aspect of the distal arch and descending thoracic aorta, de monstrated on subsequent CT angiography to represent a type B aortic aneurysm. Mild cardiomegaly. Mild pericardial effusion.
[2023-07-17] MEDS ORDERED: Nicardipine/NS 25 MG/250 ML KIT IV ONE (11:48)
[2023-07-17] MEDS ORDERED: PROMETHAZINE INJ 25 MG/ML AMP ONE (11:55)
[2023-07-17] MEDS ORDERED: NITROPRUSSIDE 50 MG in D5W 250 ML IV SCH (12:00)
--- NOTE | 2023-07-18 13:51 | EKG ---
Test Date: 2023-07-17 Test Time: 08:49:33 Companion: LYNETTE MEASUREMENT RESULTS: Intervals: Rate: 56 VT: 172 QRSD: 88 QT: 504 QTc: 486 Williamson: P: 52 VT: 172 QRS: 47 T: 225 INTERPRETIVE STATEMENTS: Sinus bradycardia with sinus arrhythmia T wave abnormality, consider lateral ischemia Prolonged QT Abnormal ECG Compared to ECG 05/18/2020 13:21:08 Possible ischemia now present Prolonged QT interval now present Sinus rhythm no longer present T-wave abnormality still present Electronically Signed On 07-18-23 13:50:11 CDT by Sebastien Dee
== END 2023-07-17 12:27 | disposition short-term general hospital (02) ==
LOC: ER 08:42
DX: I71.20 Thoracic aortic aneurysm, without rupture, unspecified (principal); I10 Essential (primary) hypertension
CPT/HCPCS: 36415; 71045; 71250; 71275; 74175; 80048; 80076; 83735; 83880; 84484; 85025; 85379; 93005; 99285; J0360; J1170; J1200; J2405; J2550; J2930; J7060; Q9967